=== PATIENT | male | born 1975 | race Caucasian/White ===

== ENCOUNTER 2021-11-08 06:53 | Emergency (ER) | payer OTHER, SELFPAY ==
[2021-11-08 07:16] LABS: Hematocrit 46.2 % (39.6-49.0); Lymphocytes % 39.4 % (15.3-44.8); RBC Red Blood Cell Count 4.82 M/uL (4.33-5.43)
[2021-11-08 07:21] LABS: Protime INR 0.89
[2021-11-08] MEDS ORDERED: activated charcoaL 25 GM/120 ML TUBE ONE (07:31)
[2021-11-08] MEDS ORDERED: NA CHLORIDE 0.9% 1,000 ML ONE ×2 (07:34→10:07)
[2021-11-08 08:01] LABS: ALT/SGPT 65 U/L (12-78); AST/SGOT 33 U/L (15-37); Albumin 4.1 g/dL (3.4-5.0); Alkaline Phosphatase 79 U/L (45-117); BUN Blood Urea Nitrogen 17 mg/dL (7-18); Bicarbonate 22 mmol/L (21-32); Bilirubin Total 0.3 mg/dL (0.2-1.0); Glucose Level 106 mg/dL (74-106); Potassium 3.9 mmol/L (3.5-5.1); Protein, Total 7.8 g/dL (6.4-8.2); Sodium Level 142 mmol/L (136-145)
[2021-11-08 08:02] LABS: Bilirubin Direct < 0.1 mg/dL (0-0.2)
[2021-11-08 09:38] LABS: Blood Morphology Comment NOT SEEN (NOT SEEN); Platelet Estimate ADEQ; White Blood Cell Scan OK (OK)
[2021-11-08 11:58] LABS: Urine Blood Negative (Negative); Urine Glucose Negative (Negative); Urine Protein Negative (Negative); Urine Specific Gravity >=1.030 (1.005-1.030)
[2021-11-08] MEDS ORDERED: POTASSIUM CL SA 10 MEQ TAB PO ONE (12:04)
[2021-11-08 12:18] LABS: Barbiturates NEGATIVE (NEGATIVE); Benzodiazepines POSITIVE (NEGATIVE); Cocaine POSITIVE (NEGATIVE); METHAMPHETAM NEGATIVE (NEGATIVE); Methadone NEGATIVE (NEGATIVE); Opiates NEGATIVE (NEGATIVE); Phencyclidine NEGATIVE (NEGATIVE); THC Cannibis POSITIVE (NEGATIVE)
--- NOTE | 2021-11-08 15:13 | ER ---
Nurse's Notes [facility] Name: Russ Almazan Age: 46 yrs Sex: Male : 1975 Arrival Date: 11/08/2021 Time: 07:00 Bed 8 Private MD: Diagnosis: Suicidal ideations;Cocaine use, unspecified with cocaine-induced mood disorder;Adverse effect of benzodiazepines;Adverse effect of other antiepileptic and sedative-hypnotic drugs Presentation: 11/08 07:02 Chief complaint: EMS states: Called for patient who reports taking x16-20 tablets of lp1 Flexeril 10mg about 1 hour ago; Reports ETOH all day yesterday while fishing with friend; Admits to self-harm attempt, "I know this will cause cardiac arrest". Coronavirus screen: At this time, the client does not indicate any symptoms associated with coronavirus-19. Ebola Screen: No symptoms or risks identified at this time. Initial Sepsis Screen: Does the patient meet any 2 criteria? No. Patient's initial sepsis screen is negative. Does the patient have a suspected source of infection? No. Patient's initial sepsis screen is negative. Risk Assessment: Do you want to hurt yourself or someone else? Patient reports desire/thoughts of hurting themselves or someone else. Provider notified. Onset of symptoms was November 08, 2021. 07:02 Acuity: MYNOR 2 lp1 07:02 Method Of Arrival: EMS: [facility] 1 07:06 Care prior to arrival: Oxygen administered. via nasal cannula. lp1 Triage Assessment: 07:07 General: Appears in no apparent distress. Behavior is cooperative, drowsy. Neuro: Level lp1 of Consciousness is awake, obeys commands, Oriented to person, time, situation. Respiratory: Airway is patent Respiratory effort is even. Historical: - Allergies: 07:05 No Known Allergies; lp1 - Home Meds: 07:05 Flexeril 10 mg Oral tab [Active]; Xanax Oral [Active]; diclofenac oral [Active]; lp1 - PMHx: 07:05 TBI; Anxiety; PTSD; lp1 - PSHx: 07:05 None; lp1 - Immunization history:: Adult Immunizations up to date. - Social history:: Smoking status: Patient reports the use of cigarette tobacco products, smokes one-half pack cigarettes per day. - Family history:: not pertinent. - Hospitalizations: : No recent hospitalization is reported. Screenin:46 Abuse screen: Denies threats or abuse. Denies injuries from another. Nutritional colon screening: No deficits noted. Tuberculosis screening: No symptoms or risk factors identified. Fall Risk IV access (20 points). Assessment: 07:45 Reassessment: Poison control called case # [id number] , per poison control expect: N/V, ke1 agitation, hypoglycemia, hypertension, bradycardia and worst case scenario seizure then hypotension , QRS and QTC prolongation, serotonin syndrome. GET toxicology labs, drugs screen, cmp , add magnesium . When CMP back optimize potassium to 4, magnesium to 2.5. QRS> 100 give bicarb, QTC> 450 give magnesium. Observe for a minimum of 8 hrs. Give charcoal 50 g . Start IV fluid. QTC< 450 and asymptomatic, can be d/c . 07:46 General: Appears in no apparent distress. Behavior is cooperative, drowsy. Pain: Denies colon pain. Neuro: Level of Consciousness is awake, obeys commands, lethargic, Oriented to place, situation. 11:34 Reassessment:. colon 11:37 Reassessment: Nhan from poison control called to f/u on PT case # [id number]. colon 18:24 Reassessment:. colon 19:41 General: Reports " I am doing okay, just feeling a little sluggish. Otherwise I am tw5 good." Patient states that he is still wanting to seek help at this time. Pain: Denies pain. Neuro: Level of Consciousness is awake, alert, obeys commands, Oriented to person, place, time, situation. 19:45 General: room cleaned. Water provided. tw5 Overdose: 07:47 [place] Suicide Severity Screening: "In the past month, have you wished you were colon or wished you could go to sleep and not wake up?" Patient responds "yes." Based off client's responses, additional C-SSRS screening questions required. "In the past month, have you actually had any thoughts of killing yourself?" Patient responds "yes." "In your lifetime, have you ever done anything, started to do anything, or prepared to do anything to end your life?" Patient responds "yes.". Patient took Flexeril and alcohol. 07:48 [place] Suicide Severity Screening: "In the past month, have you actually had any colon thoughts of killing yourself?" Patient responds "yes." Based off client's responses, additional C-SSRS screening questions required. Vital Signs: 07:02 BP 131 / 94; Pulse 89; Resp 18; Pulse Ox 98% on R/A; Weight 106.59 kg (R); Height 5 ft. lp1 10 in. (177.80 cm); 07:49 BP 125 / 95; Pulse 93; Resp 16; Pulse Ox 98% on R/A; colon 08:06 BP 130 / 77; Pulse 97; Resp 18; Pulse Ox 98% ; colon 08:42 BP 109 / 66; Pulse 99; Resp 17; Pulse Ox 98% on 2 lpm NC; colon 09:12 BP 107 / 58; Pulse 94; Resp 16; Pulse Ox 97% on 2 lpm NC; colon 09:58 BP 96 / 63; Pulse 88; Resp 16; Pulse Ox 98% on 2 lpm NC; colon 10:03 BP 112 / 78; Pulse 88; Resp 19; Temp 97.8(O); Pulse Ox 100% on 2 lpm NC; colon 10:36 BP 104 / 64; Pulse 84; Resp 17; Pulse Ox 98% on 2 lpm NC; colon 11:03 BP 105 / 61; Pulse 87; Resp 20; Pulse Ox 96% on 2 lpm NC; colon 11:49 BP 120 / 65; Pulse 94; Resp 20; Pulse Ox 100% on 2 lpm NC; colon 12:16 BP 124 / 79; Pulse 78; Resp 19; Pulse Ox 100% on 2 lpm NC; colon 12:43 BP 107 / 75; Pulse 81; Resp 19; Pulse Ox 99% on 2 lpm NC; colon 13:09 BP 117 / 67; Pulse 79; Resp 19; Pulse Ox 99% 2 lpm ; colon 14:19 BP 118 / 72; Pulse 78; Resp 18; Pulse Ox 99% on 2 lpm NC; colon 14:56 BP 110 / 68; Pulse 79; Resp 18; Pulse Ox 99% on R/A; colon 15:30 BP 94 / 57; Pulse 79; Resp 23; Pulse Ox 97% ; jl7 16:00 BP 108 / 69; Pulse 84; Resp 21; Pulse Ox 98% ; jl7 17:00 BP 119 / 79; Pulse 80; Resp 22; Pulse Ox 98% ; jl7 18:21 BP 117 / 78; Pulse 91; Resp 20; Pulse Ox 98% on R/A; colon 18:50 BP 126 / 70; Pulse 84; Resp 19; Pulse Ox 99% on R/A; colon 19:41 BP 125 / 78; Pulse 90; Resp 18; Pulse Ox 97% on R/A; Pain 0/10; tw5 07:02 Body Mass Index 33.72 (106.59 kg, 177.80 cm) lp1 ED Course: 07:00 Patient arrived in ED. lp1 07:00 Bonifacio Riley MD is Attending Physician. rn 07:00 Ana (patient's fiance) called to leave her contact information/ [phone]. eb 07:04 Triage completed. lp1 07:05 Arm band placed on. lp1 07:07 Patient has correct armband on for positive identification. Bed in low position. lp1 quality assurance monitor final on. Pulse ox on. NIBP on. 07:20 SARS-COV-2 RT PCR Sent. colon 07:20 SARS-COV-2 RT PCR (Document "Date of Onset" if Symptomatic) Sent. colon 07:20 Alcohol Serum/Plasma Sent. colon 07:20 Liver (Hepatic) Function Sent. colon 07:20 Acetaminophen Level Sent. colon 07:21 Acetaminophen Sent. colon 07:21 Basic Metabolic Panel Sent. colon 07:21 CBC with Diff Sent. colon 07:21 ETOH Level Sent. colon 07:46 Sana Riley, RN is Primary Nurse. colon 07:46 No provider procedures requiring assistance completed. Inserted saline lock: 20 gauge colon in right antecubital area, using aseptic technique. 10:13 quality assurance monitor final on. mb4 10:13 chest hair removed via razor. new electrodes placed. mb4 10:15 IV is patent, with fluids infusing freely, with good blood return. mb4 15:15 faxed patient information to the following facilities in attempt to transfer/ [facility], [facility], [facility] and [facility]. 15:16 initiated a transfer with Linda from the . A transfer center/ faxed over patient eb information. 17:31 connected the nurse from [facility] with Sana Pritchard for transfer consultation. colon spoke to LILIAN for nurse to nurse and facility will be reaching out for DOC to DOC. 18:53 connected the nurse from [facility] with Sana Pritchard for patient transfer colon consultation. spoke with jez for nurse to nurse. 19:21 Primary Nurse role handed off by Sana Riley RN 19:39 Jen Drummond is Primary Nurse. tw5 19:44 CBC with Automated Diff Sent. tw5 19:44 ETOH Level: repeat Sent. tw5 19:49 Attending Physician role handed off by Bonifacio Riley MD [facility] 19:49 Tyson Bruce MD is Attending Physician. mh7 21:04 IV discontinued, intact, bleeding controlled, No redness/swelling at site. Pressure as6 dressing applied. Administered Medications: 07:25 Drug: NS 0.9% 1000 ml Route: IV; Rate: 1000 ml; Site: right antecubital; colon 19:46 Follow up: Response: No adverse reaction; IV Status: Completed infusion; IV Intake: tw5 1000ml 07:25 Drug: Charcoal (activated charcoal) Suspension 50 grams Route: PO; colon 07:34 Follow up: Response: No adverse reaction colon 10:04 Drug: NS 0.9% 1000 ml Route: IV; Rate: 1000 ml; Site: left antecubital; colon 19:44 Follow up: Response: No adverse reaction; IV Status: Completed infusion; IV Intake: tw5 1000ml 12:03 Drug: Potassium Chloride 40 mEq Route: PO; colon 19:44 Follow up: Response: No adverse reaction tw5 Intake: 19:44 IV: 1000ml; Total: 1000ml. tw5 19:46 IV: 1000ml; Total: 2000ml. tw5 Outcome: 15:12 Discharge ordered by . rn 15:12 ER care complete, transfer ordered by . rn 21:03 Transferred by ground EMS to [facility] Transfer form completed. as6 21:03 Condition: stable 21:04 Patient left the ED. as6 Signatures: Bonifacio Riley MD MD rn Pena, Laura, RN RN lp1 Josue Garcia RN RN jl7 Shyla Farrell Mackenzie 4 Tyson Bruce MD MD Jen Young tw5 Valdemar Tee RN RN as6 Sana Riley RN RN colon Ebrottie, Kouassi, RN RN ke1 Corrections: (The following items were deleted from the chart) 07: 07:02 Risk Assessment: Do you want to hurt yourself or someone else? Patient reports no lp1 desire to harm self or others. lp1 07:22 07:21 HEPATIC FUNCTION+C.LAB.BRZ drawn and sent. colon EDMS 18:26 17:31 connected the nurse from [facility] with Sana Rn for transfer colon consultation. eb 18:26 17:38 connected the nurse from [facility] with Sana Rn for patient transfer colon consultation. eb 18:28 17:38 connected the nurse from [facility] with Sana Rn for patient transfer eb consultation. colon 19:02 18:53 connected the nurse from [facility] with Sana Rn for patient transfer colon consultation. eb
--- NOTE | 2021-11-08 15:14 | EDPHYS ---
Physician Documentation [facility] Name: Russ Almazan Age: 46 yrs Sex: Male : 1975 Arrival Date: 11/08/2021 Time: 07:00 Bed 8 Private MD: ED Physician Tyson Bruce HPI: 11/08 07:15 This 46 yrs old Male presents to ER via EMS with complaints of Overdose. rn 07:15 The patient presents to the emergency department after a known overdose. Context: rn Method: the patient has a confirmed or suspected inhalation, Time: 1 hour(s) ago, the OD/poisoning occurred at at home. Severity of symptoms: At their worst the symptoms were mild in the emergency department the symptoms are unchanged. The patient has not experienced similar symptoms in the past. The patient has not recently seen a physician. Pt reports has been having thoughts of self-harm for a while, this AM took approx 16-20 flexeril about 1 hour prior to arrival. Reports plan was to take enough to have cardiac arrest, is disappointed that didn't happen, and now embarrassed that he didn't . Denies other co-ingestion. . Historical: - Allergies: 07:05 No Known Allergies; lp1 - Home Meds: 07:05 Flexeril 10 mg Oral tab [Active]; Xanax Oral [Active]; diclofenac oral [Active]; lp1 - PMHx: 07:05 TBI; Anxiety; PTSD; lp1 - PSHx: 07:05 None; lp1 - Immunization history:: Adult Immunizations up to date. - Social history:: Smoking status: Patient reports the use of cigarette tobacco products, smokes one-half pack cigarettes per day. - Family history:: not pertinent. - Hospitalizations: : No recent hospitalization is reported. ROS: 07:15 Constitutional: Negative for fever, chills, and weight loss, Eyes: Negative for injury, rn pain, redness, and discharge, Neck: Negative for injury, pain, and swelling, Cardiovascular: + palpitations Respiratory: Negative for shortness of breath, cough, wheezing, and pleuritic chest pain, Abdomen/GI: Negative for abdominal pain, nausea, vomiting, diarrhea, and constipation, Back: Negative for injury and pain, : Negative for injury, bleeding, discharge, and swelling, MS/Extremity: Negative for injury and deformity, Skin: Negative for injury, rash, and discoloration, Neuro: Negative for headache, weakness, numbness, tingling, and seizure, Psych: + for depression and suicidal ideations Exam: 07:15 Constitutional: This is a well developed, well nourished patient who is awake, alert, rn and in no acute distress. + slurred speech. Head/Face: Normocephalic, atraumatic. Eyes: Periorbital areas with no swelling, redness, or edema. ENT: dry MM Cardiovascular: Regular rate and rhythm. No pulse deficits. Respiratory: No increased work of breathing, no retractions or nasal flaring. Abdomen/GI: Soft, non-tender Skin: Warm, dry MS/ Extremity: Pulses equal, no cyanosis. Neuro: Awake and alert, GCS 15 08:31 ECG was reviewed by the Attending Physician. rn Vital Signs: 07:02 BP 131 / 94; Pulse 89; Resp 18; Pulse Ox 98% on R/A; Weight 106.59 kg (R); Height 5 ft. lp1 10 in. (177.80 cm); 07:49 BP 125 / 95; Pulse 93; Resp 16; Pulse Ox 98% on R/A; colon 08:06 BP 130 / 77; Pulse 97; Resp 18; Pulse Ox 98% ; colon 08:42 BP 109 / 66; Pulse 99; Resp 17; Pulse Ox 98% on 2 lpm NC; colon 09:12 BP 107 / 58; Pulse 94; Resp 16; Pulse Ox 97% on 2 lpm NC; colon 09:58 BP 96 / 63; Pulse 88; Resp 16; Pulse Ox 98% on 2 lpm NC; colon 10:03 BP 112 / 78; Pulse 88; Resp 19; Temp 97.8(O); Pulse Ox 100% on 2 lpm NC; colon 10:36 BP 104 / 64; Pulse 84; Resp 17; Pulse Ox 98% on 2 lpm NC; colon 11:03 BP 105 / 61; Pulse 87; Resp 20; Pulse Ox 96% on 2 lpm NC; colon 11:49 BP 120 / 65; Pulse 94; Resp 20; Pulse Ox 100% on 2 lpm NC; colon 12:16 BP 124 / 79; Pulse 78; Resp 19; Pulse Ox 100% on 2 lpm NC; colon 12:43 BP 107 / 75; Pulse 81; Resp 19; Pulse Ox 99% on 2 lpm NC; colon 13:09 BP 117 / 67; Pulse 79; Resp 19; Pulse Ox 99% 2 lpm ; colon 14:19 BP 118 / 72; Pulse 78; Resp 18; Pulse Ox 99% on 2 lpm NC; colon 14:56 BP 110 / 68; Pulse 79; Resp 18; Pulse Ox 99% on R/A; colon 15:30 BP 94 / 57; Pulse 79; Resp 23; Pulse Ox 97% ; jl7 16:00 BP 108 / 69; Pulse 84; Resp 21; Pulse Ox 98% ; jl7 17:00 BP 119 / 79; Pulse 80; Resp 22; Pulse Ox 98% ; jl7 18:21 BP 117 / 78; Pulse 91; Resp 20; Pulse Ox 98% on R/A; colon 18:50 BP 126 / 70; Pulse 84; Resp 19; Pulse Ox 99% on R/A; colon 19:41 BP 125 / 78; Pulse 90; Resp 18; Pulse Ox 97% on R/A; Pain 0/10; tw5 07:02 Body Mass Index 33.72 (106.59 kg, 177.80 cm) lp1 MDM: 07:00 Patient medically screened. rn 12:00 Differential diagnosis: Ingestion/exposure to flexeril, ETOH. Data reviewed: vital rn signs, nurses notes, lab test result(s), EKG, and as a result, I will continue to observe the patient. 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 Interpretation: normal. Counseling: I had a detailed discussion with the patient and/or guardian regarding: the historical points, exam findings, and any diagnostic results supporting the discharge/admit diagnosis, lab results, the need to transfer to another facility. Response to treatment: the patient's symptoms have markedly improved after treatment, sitting up, eating., and as a result, I will continue to observe the patient. 15:09 ED course: Pt awakens easily, still sleepy, eating, stable vitals, now medically rn cleared 8 hours after arrival. Will arrange for psychiatric transport/evaluation. . 18:55 Transition of care: After a detail discussion of the patient's case, care is rn transferred to Tyson Bruce MD. 11/08 07:01 Order name: Acetaminophen rn 11/08 07:01 Order name: Basic Metabolic Panel rn 11/08 07:01 Order name: CBC with Diff rn 11/08 07:01 Order name: ETOH Level rn 11/08 07:01 Order name: PT-INR; Complete Time: 08:13 rn 11/08 07:01 Order name: Ptt, Activated; Complete Time: 08:13 rn 11/08 07:01 Order name: Salicylate; Complete Time: 08:13 rn 11/08 07:01 Order name: Urine Drug Screen; Complete Time: 13:58 rn 11/08 07:01 Order name: Acetaminophen Level; Complete Time: 08:13 EDMS 11/08 07:01 Order name: Basic Metabolic Panel; Complete Time: 08:13 EDMS 11/08 07:01 Order name: CBC with Automated Diff EDMS 11/08 07:01 Order name: Alcohol Serum/Plasma; Complete Time: 08:13 EDMS 11/08 07:01 Order name: Liver (Hepatic) Function; Complete Time: 08:13 EDMS 11/08 07:01 Order name: EKG; Complete Time: 07:02 rn 11/08 07:01 Order name: EKG - Nurse/Tech; Complete Time: 07:21 rn 11/08 07:02 Order name: SARS-COV-2 RT PCR (Document "Date of Onset" if Symptomatic) rn 11/08 07:03 Order name: SARS-COV-2 RT PCR; Complete Time: 09:06 EDMS 11/08 08:30 Order name: Diet Finger Food; Complete Time: 08:30 eb 11/08 09:38 Order name: CBC Smear Scan EDMS 11/08 10:13 Order name: Glucose, Ancillary Testing; Complete Time: 11:56 EDMS 11/08 10:44 Order name: Diet Finger Food; Complete Time: 10:44 ke1 11/08 11:58 Order name: Urine Dipstick-Ancillary; Complete Time: 13:58 EDMS 11/08 14:06 Order name: ETOH Level: repeat eb 11/08 14:06 Order name: Alcohol Serum/Plasma; Complete Time: 15:01 EDMS 11/08 16:40 Order name: Diet Finger Food; Complete Time: 16:40 eb 11/08 07:01 Order name: IV Saline Lock; Complete Time: 07:21 rn 11/08 07:01 Order name: Labs collected and sent; Complete Time: 07:21 rn 11/08 07:01 Order name: Suicide Precautions; Complete Time: 07:21 rn 11/08 07:01 Order name: Suicide Screening ([place]); Complete Time: 07:21 rn 11/08 07:01 Order name: Urine Dipstick-Ancillary (obtain specimen); Complete Time: 11:59 rn 11/08 10:00 Order name: Glucose Level; Complete Time: 11:32 rn EC:31 Rate is 91 beats/min. Rhythm is regular. QRS [place] is Normal. [place] interval is normal. QRS rn interval is normal. QT interval is normal. No Q waves. T waves are Normal. No ST changes noted. Clinical impression: Normal ECG. Interpreted by me. Reviewed by me. Administered Medications: 07:25 Drug: NS 0.9% 1000 ml Route: IV; Rate: 1000 ml; Site: right antecubital; colon 19:46 Follow up: Response: No adverse reaction; IV Status: Completed infusion; IV Intake: tw5 1000ml 07:25 Drug: Charcoal (activated charcoal) Suspension 50 grams Route: PO; colon 07:34 Follow up: Response: No adverse reaction colon 10:04 Drug: NS 0.9% 1000 ml Route: IV; Rate: 1000 ml; Site: left antecubital; colon 19:44 Follow up: Response: No adverse reaction; IV Status: Completed infusion; IV Intake: tw5 1000ml 12:03 Drug: Potassium Chloride 40 mEq Route: PO; colon 19:44 Follow up: Response: No adverse reaction tw5 Disposition Summary: 11/08/21 15:12 Transfer Ordered Transfer Location: Psych Facility rn Reason: Higher level of care rn Condition: Stable(11/08/21 15:12) rn Problem: new(11/08/21 15:12) rn Symptoms: have improved(11/08/21 15:12) rn Accepting Physician: Dr. Zacarias(11/08/21 21:04) as6 Diagnosis - Suicidal ideations(11/08/21 15:12) rn - Cocaine use, unspecified with cocaine-induced mood disorder(11/08/21 15:12) rn - Adverse effect of benzodiazepines(11/08/21 15:12) rn - Adverse effect of other antiepileptic and sedative-hypnotic drugs(11/08/21 15:12) rn Forms: - Medication Reconciliation Form rn - SBAR form rn Signatures: Dispatcher [employer] EDBonifacio Barros MD MD rn Pena, Laura, RN RN lp1 Tyson Bruce MD MD mh7 Valdemar Tee, RN RN as6 Sana Riley, RN RN Jen Vidales tw5 Corrections: (The following items were deleted from the chart) 07: 07:02 HEPATIC FUNCTION+C.LAB.BRZ ordered. EDMS EDMS 15:12 15:12 Home rn rn 15:12 15:12 new rn rn 15:12 15:12 have improved rn rn 15:12 15:12 Stable rn rn 15:12 15:12 Suicidal ideations rn rn 15:12 15:12 Cocaine use, unspecified with cocaine-induced mood disorder rn rn 15:12 15:12 Adverse effect of benzodiazepines rn rn 15:12 15:12 Adverse effect of other antiepileptic and sedative-hypnotic drugs rn rn 20:11 15:12 Dr. calhoun mh7 21:04 20:11 Dr. Zacarias 7 as6
[2021-11-08 21:17] VITALS: TEMP 97.8
[2021-11-08 21:35] VITALS: BP 125/78; O2SAT 97
== END 2021-11-08 21:04 ==
LOC: ER 06:53 → EDBD 06:53 → ER 21:04
DX: R45.851 Suicidal ideations (principal); F14.94 Cocaine use, unspecified with cocaine-induced mood disorder; T42.4X5A Adverse effect of benzodiazepines, initial encounter; T42.6X5A Adverse effect of other antiepileptic and sedative-hypnotic drugs, initial encounter; F17.210 Nicotine dependence, cigarettes, uncomplicated; F43.10 Post-traumatic stress disorder, unspecified; Z87.820 Personal history of traumatic brain injury; Z20.822 Contact with and (suspected) exposure to COVID-19
CPT/HCPCS: 96361; 93005; 85025; 80048; 36415; 80320 ×2; 80329 ×2; 85610; 82947; 80076; 85730; 81003; 80307; 96360; 99285; U0003; J7030 ×2

== ENCOUNTER 2024-04-27 07:20 | Emergency (ER) | payer OTHER ==
[2024-04-27] MEDS ORDERED: KETOROLAC 30 MG/ML INJ ONE (07:43)
[2024-04-27] MEDS ORDERED: HYDROCODONE/APAP 10/325 TAB ONE (07:44)
[2024-04-27 08:11] LABS: Absolute Basophils 0.1 K/uL (0-0.5); Absolute Eosinophils 0.3 K/uL (0-0.5); Absolute Lymphocytes (CBC) 2.1 K/uL (0.7-4.9); Absolute Monocytes 0.5 K/uL (0.1-1.3); Absolute Neutrophil 3.5 K/uL (1.8-8.0); Basophils % 1.2 % (0-1.3); Eosinophils % 4.2 % (0-4.4); Hematocrit 41.8 % (39.6-49.0); Hemoglobin 14.4 g/dL (13.6-17.9); Lymphocytes % 32.4 % (15.3-44.8); MCH 32.9 pg (27.0-35.0); MCHC 34.5 g/dL (32.0-36.0); MCV 95.3 fL (80-100); MPV 6.8 fL (7.6-11.3); Monocytes % 8.2 % (3.3-12.3); Nucleated Red Blood Cells % 0.1 % (0-0); Platelets 263 thou/uL (152-406); RBC Red Blood Cell Count 4.39 M/uL (4.33-5.43); Red Cell Distribution Width 13.4 % (12.1-15.2)
[2024-04-27 08:13] LABS: Anion Gap 8.1 mEq/L (5.0-15.0); Potassium 4.1 mEq/L (3.5-5.1)
--- NOTE | 2024-04-27 08:43 | RAD REPORT ---
EXAM DESCRIPTION: CTFacial Bones W Con Mpr04/27/2024 8:25 am CLINICAL HISTORY: Facial pain. Right jaw pain. COMPARISON: None. TECHNIQUE: Computed axial tomography of the face obtained with coronal and sagittal reconstruction. 50 cc Isovue-[address] scans are performed using dose optimization technique as appropriate and may include automated exposure control or mA/KV adjustment according to patient size. FINDINGS: Subtle lucency surrounds a right mandibular tooth Mild edema right submental subcutaneous tissues The parotid and submandibular glands appear unremarkable. The parapharyngeal fat is clear. Mild ethmoid sinusitis No TMJ dislocation IMPRESSION: Subtle lucency surrounds a right mandibular tooth equivocal for an apical tooth abscess
--- NOTE | 2024-04-27 09:02 | EDPHYS ---
Physician Documentation [facility] Name: Russ Almazan Age: 49 yrs Sex: Male : 1975 Arrival Date: 04/27/2024 Time: 07:20 Bed 19 Private MD: ED Physician Bonifacio Riley HPI: 04/27 07:56 This 49 yrs old Male presents to ER via Ambulatory with complaints of Jaw rn Pain. 07:56 49-year-old male with past medical history of anxiety, PTSD, TBI presents to the rn emergency department with complaints of jaw pain. Patient states that he was seen in another emergency department 6 days ago for right lower jaw pain and swelling and was told to follow-up with his dentist. Patient reports that his dentist told him that he likely has a jaw abscess not amenable to tooth extraction and that he would need to follow-up with an oral surgeon. Patient describes a right lower jaw pain rated as an 8/10 and feels like his jaw is broken. He has been taking cephalexin and tramadol for the past 6 days with mild relief. Denies fevers, chills, nausea, vomiting, chest pain, shortness of breath, headache. No other complaints at this time.. Historical: - Allergies: 07:33 No Known Allergies; kc6 - PMHx: 07:33 Anxiety; PTSD; TBI; kc6 - PSHx: 07:33 None; kc6 - Immunization history:: Client reports having NOT received the Covid vaccine. Flu vaccine is up to date. - Infectious Disease History:: Denies. - Social history:: Smoking status: Patient denies any tobacco usage or history of. - Family history:: not pertinent. - Hospitalizations: : No recent hospitalization is reported. ROS: 08:15 Constitutional: Negative for fever, chills, and weight loss, ENT: Positive for right rn lower dental and jaw pain Neck: Negative for injury, pain, and swelling, Exam: 08:15 Constitutional: This is a well developed, well nourished patient who is awake, alert, rn and in no acute distress. Head/Face: Normocephalic, atraumatic. ENT: Bruising noted along gumline at right lower posterior tooth. No fluctuance or obvious intraoral abscess at this time. No buccal space abscess. No swelling of neck Neck: No Meningismus. Vital Signs: 07:31 BP 141 / 88; Pulse 74; Resp 17 S; Temp 97.4(O); Pulse Ox 100% ; Weight 111.13 kg (R); kc6 Height 5 ft. 10 in. (R); Pain 5/10; 09:19 BP 130 / 80; Pulse 70; Resp 15 S; Pulse Ox 99% on R/A; kc6 07:31 Body Mass Index 35.15 (111.13 kg, 177.8 cm) kc6 07:31 Pain Scale: Adult kc6 MDM: 07:32 Patient medically screened. rn 08:56 Differential diagnosis: dental caries, dental abscess. Data reviewed: vital signs, rn nurses notes, lab test result(s), radiologic studies, CT scan, and as a result, I will discharge patient. Consideration of Admission/Observation. Counseling: I had a detailed discussion with the patient and/or guardian regarding the historical points, exam findings, and any diagnostic results supporting the discharge/admit diagnosis, lab results, radiology results, the need for outpatient follow up, to return to the emergency department if symptoms worsen or persist or if there are any questions or concerns that arise at home. Special discussion: I discussed with the patient/guardian in detail that at this point there is no indication for admission to the hospital. It is understood, however, that if the symptoms persist or worsen the patient needs to return immediately for re-evaluation. Based on the history and exam findings, there is no indication for further emergent testing or inpatient evaluation. I discussed with the patient/guardian the need to see a dentist for further evaluation of the symptoms. I discussed with the patient/guardian the need to see the oral maxillofacial surgeon for further evaluation of the symptoms. ED course: Patient with CT face that is equivocal for dental abscess. Normal WBC. Gave him information for local OMFS to follow-up with today. Will add clindamycin and discharge home. 04/27 07:40 Order name: CBC with Diff; Complete Time: 08:47 rn 04/27 07:40 Order name: Basic Metabolic Panel; Complete Time: 08:47 rn 04/27 07:40 Order name: CT Facial Bones W/ Con \T\ Mpr; Complete Time: 08:47 rn 04/27 07:40 Order name: IV Start; Complete Time: 07:54 rn Administered Medications: 07:54 Drug: Ketorolac IVP 15 mg IVP once Route: IVP; Site: right antecubital; kc6 08:21 Follow up: Response: No adverse reaction kc6 07:54 Drug: Funk PO 10 mg-325 mg 1 tabs PO once Route: PO; kc6 08:21 Follow up: Response: No adverse reaction; RASS: Alert and Calm (0) kc6 Disposition Summary: 04/27/24 09:01 Discharge Ordered Notes: Location: Home rn Problem: an ongoing problem rn Symptoms: are unchanged rn Condition: Stable rn Diagnosis - Dental caries, unspecified rn - Dentalgia rn - Possible dental abscess rn Followup: rn - With: John Nguyen DDS - When: Today - Reason: Recheck today's complaints, Re-evaluation by your physician Discharge Instructions: - Discharge Summary Sheet rn - Dental Caries, Adult rn - Dental Pain rn Forms: - Medication Reconciliation Form rn - Antibiotic civil rights attorney - Prescription Opioid Use rn - Patient Portal Instructions rn - Leadership Thank You Letter rn Prescriptions: - Clindamycin HCl 300 mg Oral Capsule - take 1 capsule ORAL route every 6 hours for 10 days; 40 capsule; Refills: 0, rn Product Selection Permitted - Tramadol 50 mg Oral Tablet - take 1 tablet ORAL route every 8 hours as needed; 12 tablet; Refills: 0, rn Product Selection Permitted Signatures: Dispatcher [employer] Bonifacio Delcid MD MD rn Campbell, Kaitlyn, RN RN kc6 Corrections: (The following items were deleted from the chart) 07:41 07:41 Facial Bones W/ Con \T\ [id number] ordered. EDMS EDMS
--- NOTE | 2024-04-27 09:02 | ER ---
Nurse's Notes [facility] Name: Russ Almazan Age: 49 yrs Sex: Male : 1975 Arrival Date: 04/27/2024 Time: 07:20 Bed 19 Private MD: Diagnosis: Dental caries, unspecified;Dentalgia;Possible dental abscess Presentation: 04/27 07:31 Chief complaint: Patient states: right lower jaw pain since Tuesday. states he went to [facility] [place] and they advised him to go to the dentist. pt was instructed to come here by dentist for surgery. states he was told he has an abscess. Coronavirus screen: At this time, the client does not indicate any symptoms associated with coronavirus-19. Ebola Screen: No symptoms or risks identified at this time. Initial Sepsis Screen: Does the patient meet any 2 criteria? No. Patient's initial sepsis screen is negative. Does the patient have a suspected source of infection? No. Patient's initial sepsis screen is negative. Risk Assessment: Do you want to hurt yourself or someone else? Patient reports no desire to harm self or others. Onset of symptoms was April 21, 2024. 07:31 Method Of Arrival: Ambulatory [facility] 07:31 Acuity: MYNOR 3 [facility] Triage Assessment: 07:33 General: Appears in no apparent distress. comfortable, well groomed, well developed, [facility] Behavior is calm, cooperative, appropriate for age. Pain: Complains of pain in mouth Pain does not radiate. Pain currently is 5 out of 10 on a pain scale. Quality of pain is described as Alleviated by medications. EENT: No signs and/or symptoms were reported regarding the EENT system. Neuro: Level of Consciousness is awake, alert, obeys commands, Oriented to person, place, time, situation, Appropriate for age. Cardiovascular: Capillary refill < 3 seconds. Respiratory: Airway is patent Trachea midline Respiratory effort is even, unlabored, Respiratory pattern is regular, symmetrical. GI: No signs and/or symptoms were reported involving the gastrointestinal system. : No signs and/or symptoms were reported regarding the genitourinary system. Derm: No signs and/or symptoms reported regarding the dermatologic system. Skin is intact, is healthy with good turgor, Skin is pink, warm \T\ dry. Musculoskeletal: No signs and/or symptoms reported regarding the musculoskeletal system. Circulation, motion, and sensation intact. Capillary refill < 3 seconds, Range of motion: intact in all extremities. Historical: - Allergies: 07:33 No Known Allergies; kc6 - PMHx: 07:33 Anxiety; PTSD; TBI; kc6 - PSHx: 07:33 None; kc6 - Immunization history:: Client reports having NOT received the Covid vaccine. Flu vaccine is up to date. - Infectious Disease History:: Denies. - Social history:: Smoking status: Patient denies any tobacco usage or history of. - Family history:: not pertinent. - Hospitalizations: : No recent hospitalization is reported. Screenin:41 [facility] ED Fall Risk Assessment (Adult) History of falling in the last 3 months, [facility] including since admission No falls in past 3 months (0 pts) Confusion or Disorientation No (0 pts) Intoxicated or Sedated No (0 pts) Impaired Gait No (0 pts) Mobility Assist Device Used No (0 pt) Altered Elimination No (0 pt) Score/Fall Risk Level 0 - 2 = Low Risk. Abuse screen: Denies threats or abuse. Denies injuries from another. Nutritional screening: No deficits noted. Tuberculosis screening: No symptoms or risk factors identified. Assessment: 07:42 Reassessment: please see triage. [facility] 08:51 Reassessment: Patient appears in no apparent distress at this time. No changes from [facility] previously documented assessment. Patient and/or family updated on plan of care and expected duration. Pain level reassessed. Patient is alert, oriented x 3, equal unlabored respirations, skin warm/dry/pink. Vital Signs: 07:31 BP 141 / 88; Pulse 74; Resp 17 S; Temp 97.4(O); Pulse Ox 100% ; Weight 111.13 kg (R); kc6 Height 5 ft. 10 in. (R); Pain 5/10; 09:19 BP 130 / 80; Pulse 70; Resp 15 S; Pulse Ox 99% on R/A; kc6 07:31 Body Mass Index 35.15 (111.13 kg, 177.8 cm) kc6 07:31 Pain Scale: Adult [facility] ED Course: 07:25 Patient arrived in ED. eb 07:28 Lakisha Flores RN is Primary Nurse. kc 07:32 Bonifacio Riley MD is Attending Physician. rn 07:33 Triage completed. kc6 07:33 Arm band placed on. kc6 07:41 Patient has correct armband on for positive identification. Bed in low position. Call kc6 light in reach. Side rails up X 1. Pulse ox on. NIBP on. Pillow given. 07:54 CBC with Diff Sent. kc6 07:54 Basic Metabolic Panel Sent. kc6 07:54 Inserted saline lock: 20 gauge in right antecubital area, using aseptic technique. kc6 Blood collected. Flushed with 10 mL NS. 08:26 CT Facial Bones W/ Con \T\ Mpr In Process Unspecified. EDMS 09:00 John Nguyen DDS is Referral Physician. rn 09:19 No provider procedures requiring assistance completed. IV discontinued, intact, kc6 bleeding controlled, No redness/swelling at site. Pressure dressing applied. Administered Medications: 07:54 Drug: Ketorolac IVP 15 mg IVP once Route: IVP; Site: right antecubital; kc6 08:21 Follow up: Response: No adverse reaction kc6 07:54 Drug: [place] PO 10 mg-325 mg 1 tabs PO once Route: PO; kc6 08:21 Follow up: Response: No adverse reaction; RASS: Alert and Calm (0) kc6 Medication: 09:20 VIS not applicable for this client. kc6 Outcome: 09:01 Discharge ordered by . rn 09:19 Discharged to home ambulatory, kc6 09:19 Condition: improved 09:19 Discharge instructions given to patient, Instructed on discharge instructions, follow up and referral plans. no drinking with medication, no driving heavy equipment, medication usage, Demonstrated understanding of instructions, follow-up care, medications, Prescriptions given X 2, 09:20 Patient left the ED. kc6 Signatures: Dispatcher [employer] EDMS Bonifacio Riley MD MD rn Botello, Elizabeth eb Campbell, Kaitlyn, RN RN kc6 Corrections: (The following items were deleted from the chart) 07:41 07:31 Resp 17bpm; Spontaneous; 111.13 kg Reported; Height 5 ft. 10 in. Reported; BMI: kc6 35.1; Pain 5/10, Adult; kc6
[2024-04-27 09:41] VITALS: BP 141/88; TEMP 97.4; O2SAT 100
== END 2024-04-27 09:20 | disposition home or self-care (01) ==
LOC: ER 07:20
DX: K02.9 Dental caries, unspecified (principal)
CPT/HCPCS: 85025; 80048; 36415; 70487; 76377; 96374; 99284; Q9967